=== PATIENT | female | born 1990 | race Caucasian/White ===

== ENCOUNTER 2020-11-06 07:04 | Inpatient (IN) | payer OTHER ==
[~2020-11-06 07:04] MED LIST: BENTYL10 MG PO
[2020-11-06 07:57] LABS: HCT 34.2 % (37.0-47.0); HGB 11.8 g/dl (12.5-16.0); MCH 30.9 pg (25.0-31.0); MCHC 34.5 g/dL (32.0-36.0); MCV 89.5 fL (78.0-100.0); MPV 9.9 fL (6.0-9.5); RBC 3.82 M/uL (4.20-5.40); RDW 13.1 % (11.5-14.0); WBC 12.1 K/uL (4.0-10.5)
[2020-11-06 10:49] LABS: BILIRUBIN NEGATIVE (NEGATIVE); BLOOD TRACE-INTACT Ery/uL (NEGATIVE); CLARITY CLEAR (CLEAR); COLOR YELLOW (YELLOW); GLUCOSE (U) NORMAL (NORMAL); LEUKOCYTES NEGATIVE Leu/uL (NEGATIVE); NITRITE NEGATIVE (NEGATIVE); PROTEIN NEGATIVE (NEGATIVE); SPECIFIC GRAVITY >=1.030 (1.001-1.030); UROBILINOGEN 0.2 mg/dL (0.2-1.0)
[2020-11-06 10:58] LABS: BACTERIA TRACE; URINARY WBC RARE
[2020-11-07 05:01] LABS: HCT 30.4 % (37.0-47.0); HGB 10.3 g/dl (12.5-16.0); MCH 31.1 pg (25.0-31.0); MCHC 33.9 g/dL (32.0-36.0); MCV 91.8 fL (78.0-100.0); MPV 9.7 fL (6.0-9.5); RBC 3.31 M/uL (4.20-5.40); RDW 13.2 % (11.5-14.0); WBC 10.6 K/uL (4.0-10.5)
== END 2020-11-08 10:30 | disposition home or self-care (01) | DRG 787 ==
LOC: FOB 07:04
PROVIDERS: ADMIT Obstetrics & Gynecology
PROC: 10D00Z1 Extraction of Products of Conception, Low, Open Approach (ICD-10-PCS; principal; 2020-11-06 09:00)
DX: O34.211 Maternal care for low transverse scar from previous cesarean delivery (principal); D62 Acute posthemorrhagic anemia; Z37.0 Single live birth; Z3A.39 39 weeks gestation of pregnancy; O99.02 Anemia complicating childbirth; O99.214 Obesity complicating childbirth; E66.9 Obesity, unspecified; O99.334 Smoking (tobacco) complicating childbirth; F17.200 Nicotine dependence, unspecified, uncomplicated
CPT/HCPCS: 36415; 81001; 86850; 86900; 86901; J0456; J0690; J1200; J1885; J2274; J2370; J3010; J7050; J7120; U0002